=== PATIENT | male | born 1975 | race Caucasian/White ===

== ENCOUNTER 2021-05-30 21:54 | Emergency (ER) | payer MEDICAID, SELFPAY ==
--- NOTE | ~2021-05-30 | XR_ITS ---
EXAMINATION: XR ABDOMEN KUB CLINICAL INDICATION: Fecal impaction. COMPARISON: None TECHNIQUE: AP view of the abdomen. FINDINGS: There is a large volume of stool in the ascending through the mid descending colon. Moderate to small volume of stool in the distal colon at the pelvis. No abnormally dilated bowel loop. Nonobstructive bowel pattern. XR/XR KUB IMPRESSION: Large volume of stool in ascending colon through the mid descending colon. Nonobstructive bowel pattern.
--- NOTE | 2021-05-30 22:31 | PC.NURSE ---
Patient using the bathroom and unable to get vitals or triage patient at this time
[2021-05-30 22:36] VITALS: BP 123/74; PULSE 66; RESP 18; TEMP 36.9; O2SAT 98; BMI 28.6
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
[2021-05-30] MEDS: bisacodyL 5 MG TABLET.DR 10 MG PO (23:26)
[2021-05-30] MEDS: Magnesium Citrate 300 ML SOLUTION PO (23:27)
[2021-05-31 00:16] VITALS: BP 123/78; PULSE 74; RESP 16; TEMP 36.9; O2SAT 95
== END 2021-05-31 01:00 | disposition home or self-care (01) ==
PROVIDERS: Emergency Provider Internal Medicine
DX: K59.04 Chronic idiopathic constipation (principal); G81.91 Hemiplegia, unspecified affecting right dominant side
CPT/HCPCS: 74018; 99284

== ENCOUNTER → 2021-10-03 13:04 | Outpatient (BNVA) | payer MEDICAID, SELFPAY | PROVIDERS: PCP Student in an Organized Health Care Education/Training Program; Visit Provider Anesthesiology | DX: M47.816 Spondylosis without myelopathy or radiculopathy, lumbar region (principal); Z87.820 Personal history of traumatic brain injury | CPT/HCPCS: 99202 ==

== ENCOUNTER → 2021-11-02 10:07 | Outpatient (BNVA) | payer MEDICAID, SELFPAY | PROVIDERS: PCP Student in an Organized Health Care Education/Training Program; Visit Provider Anesthesiology | DX: Z13.89 Encounter for screening for other disorder (principal) ==

== ENCOUNTER 2021-11-03 08:10 | Outpatient (REF) | payer MEDICAID, SELFPAY ==
[2021-11-03 09:21] LABS: MANUAL DIFF FLAG NO
[2021-11-03 10:02] LABS: Basophils Percent Auto 0.6 % (0-2); Eosinophils Absolute Auto 0.1 X10*3/uL (0.0-0.4); Eosinophils Percent Auto 2.2 % (0-4); Hematocrit 44.3 % (42.0-52.0); Imm Gran Abs Auto 0.02 X10*3/uL (0.00-0.03); Imm Gran Pct Auto 0.4 % (0.0-0.4); Lymphocytes Absolute Auto 1.8 X10*3/uL (1.2-4.9); Lymphocytes Percent Auto 32.6 % (20-40); Mean Corpuscular HGB Conc 31.6 g/dl (31.0-36.0); Mean Corpuscular Hemoglobin 27.7 pg (27.0-33.0); Mean Corpuscular Volume 87.7 fL (80.0-98.0); Mean Platelet Volume 10.2 fL (9.4-12.4); Monocytes Absolute Auto 0.6 X10*3/uL (0.1-1.2); Monocytes Percent Auto 10.3 % (2-11); Neutrophils Absolute Auto 2.9 x10*3/uL (2.0-8.3); Neutrophils Percent Auto 53.9 % (45-73); Platelet Count 255 X10*3/uL (160-400); Red Blood Count 5.05 X10*6/uL (4.60-5.80); Red Cell Distribution Width 13.1 % (11.0-16.0); White Blood Count 5.4 X10*3/uL (4.8-10.8)
[2021-11-03 10:49] LABS: Alanine Aminotransferase 20 U/L (0-40); Albumin Level 4.2 g/dL (3.5-5.0); Alkaline Phosphatase 68 U/L (39-117); Anion Gap 10 (12-20); Aspartate Amino Transferase 14 U/L (5-37); Bilirubin Total 0.2 mg/dL (0.0-1.0); Blood Urea Nitrogen 17 mg/dL (9-16); Calcium 9.5 mg/dL (8.4-10.2); Carbon Dioxide 28 mmol/L (22-29); Chloride 107 mmol/L (96-108); Estimated Glomerular Filt Rate > 60; Glucose Random 80 mg/dL (60-115); Potassium 4.4 mmol/L (3.3-5.1); Sodium 141 mmol/L (135-145); Total Protein 7.2 g/dL (6.5-8.0)
== END 2021-11-03 08:11 | disposition home or self-care (01) ==
LOC: HO.LAB 08:10
PROVIDERS: PCP Student in an Organized Health Care Education/Training Program; Visit Provider Nurse Practitioner
DX: Z01.818 Encounter for other preprocedural examination (principal); K59.00 Constipation, unspecified; K64.9 Unspecified hemorrhoids; K62.5 Hemorrhage of anus and rectum
CPT/HCPCS: 36415; 80053; 85025; 99202

== ENCOUNTER 2021-11-10 15:00 | Outpatient (REF) | payer MEDICAID, SELFPAY ==
--- NOTE | ~2021-11-10 | CT_ITS ---
EXAMINATION: CT LUMBAR SPINE CLINICAL INFORMATION: Spondylosis without myelopathy or radiculopathy. COMPARISON: Abdominal CT from 01/26/2012. TECHNIQUE: Multidetector helical imaging acquired in the axial plane following intravenous administration of 85 mL of Omnipaque 350. This CT examination was performed using dose optimization techniques as appropriate, variously including the following: *Automated exposure control *Adjustment of mA and/or kV according to patient size (this includes techniques or standardized protocols for targeted exams where dose is matched to indication/reason for exam; i.e. 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 It is difficult to discern on the basis of this study as to whether the conus tip is abnormally low-lying in position. At the level of the sacral dysraphism, there is new incompletely visualized soft tissue abnormality, which is either high in attenuation or enhancing posteriorly in the midline deep subcutaneous tissues between the level of the gluteal musculature. Soft tissue abnormality was not seen on prior imaging and measures approximately 73 Hounsfield units. There are no subluxations. Disc space narrowing and a mild disc bulge noted at the L4-L5 level. An IVC filter is in place. There is a horseshoe kidney with multiple bilateral renal cysts. The abdominal aorta is normal in caliber. No vertebral body compression fracture deformities are seen. CT/CT lumbar spine w con IMPRESSION: Imaging findings, which may reflect caudal regression and/or partial sacral agenesis with a dysmorphic appearance of the partially sacralized L5 vertebra. 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 New soft tissue abnormality at the dysraphic defect in the sacrum, not seen on prior CT imaging from February 2012. It is indeterminate as to whether findings represent blood products or a soft tissue mass; query for any history of recent trauma. An MRI targeting the lower lumbosacral region without and with contrast is recommended in follow-up for further evaluation.
[2021-11-10] MEDS: iohexoL 350 MG/ML 100 ML INFUS..BTL IV (15:34)
== END 2021-11-10 15:01 | disposition home or self-care (01) ==
LOC: HO.CT 15:00
PROVIDERS: PCP Student in an Organized Health Care Education/Training Program; Visit Provider Anesthesiology
DX: M47.816 Spondylosis without myelopathy or radiculopathy, lumbar region (principal)
CPT/HCPCS: 72132; Q9967

== ENCOUNTER 2021-11-25 10:36 | Outpatient (REF) | payer MEDICAID, SELFPAY ==
--- NOTE | ~2021-11-25 | CT_ITS ---
EXAMINATION: CT PELVIS WITH CONTRAST CLINICAL INFORMATION: Sacrococcygeal disorders. COMPARISON: Abdominal radiograph dated 05/30/[address] abdomen/pelvis dated 01/26/2012. TECHNIQUE: Helical scanning was performed with submillimeter collimation through the pelvis with the use of oral contrast and during bolus intravenous injection of 85 mL of Omnipaque 350 intravenous contrast. Sagittal and coronal multiplanar 2-D reconstructions were obtained. This CT examination was performed using dose optimization techniques as appropriate, variously including the following: *Automated exposure control *Adjustment of mA and/or kV according to patient size (this includes techniques or standardized protocols for targeted exams where dose is matched to indication/reason for exam; i.e. extremities or head) *Use of iterative reconstruction technique DLP: 262 mGy-cm FINDINGS: Redemonstration of transitional anatomy visualized within the lower lumbar spine and sacrum, similar when compared to the prior examination. There is a lytic/destructive lesion which appears in the midportion of the sacrum in the region of the previously seen sacral agenesis. This appears to be soft tissue density and demonstrates mild heterogeneous enhancement. There is a large, expansile soft tissue component which is located anterior to the distal sacrum within the posterior pelvis. Overall this area measures approximately 7.4 x 7.2 x 3.9 cm (AP by ML by CC). This includes an anterior and left pelvic ovoid component which measures up to 3.4 cm and is either closely associated or attached to the main lesion. There is erosion of the adjacent superior and inferior sacral structures when compared to the prior examination. No additional soft tissue mass. Subcentimeter bilateral pelvic lymph nodes are unchanged when compared to the prior examination. No new or increasing lymphadenopathy. Partially visualized horseshoe kidney with multiple simple-appearing renal cysts, increased in size when compared to the prior CT. Cysts are benign appearing and no dedicated followup imaging is recommended. The urinary bladder is distended without hydronephrosis. The visualized pelvic bowel loops are unremarkable. Partially visualized IVC filter. No acute fracture or dislocation. Mild osteoarthritis at the right and left hip. CT/CT pelvis w con IMPRESSION: 1. Expansile soft tissue mass associated with the mid sacrum in the area of previously seen sacral agenesis. This measures up to 7.4 x 7.2 x 3.9 cm in greatest dimension including an anterior left pelvic ovoid component. There is erosion of the adjacent osseous structures. Findings are concerning for a neoplastic lesion and soft tissue sampling could be considered to help further evaluate. 2. No additional soft tissue mass. No new pelvic lymphadenopathy. 3. Transitional anatomy redemonstrated within the lower lumbar spine and sacrum without acute osseous abnormality. Bilateral hip osteoarthritis. 4. Partially visualized horse-shoe kidney with increasing simple cysts. No dedicated followup imaging recommended. Distended urinary bladder without significant hydroureter. This critical result was discussed with SONJA Shipman at 3:37 PM on 11/25/2021 and it was ascertained that the content and urgency of the report was understood at the time of direct communication.
[2021-11-25] MEDS: iohexoL 350 MG/ML 100 ML INFUS..BTL 85 ML IV (11:31)
== END 2021-11-25 10:37 | disposition home or self-care (01) ==
LOC: HO.CT 10:36
PROVIDERS: PCP Student in an Organized Health Care Education/Training Program; Visit Provider Anesthesiology
DX: M53.3 Sacrococcygeal disorders, not elsewhere classified (principal)
CPT/HCPCS: 72193; Q9967

== ENCOUNTER → 2021-11-28 13:06 | Outpatient (BNVA) | payer MEDICAID, SELFPAY | PROVIDERS: PCP Student in an Organized Health Care Education/Training Program; Visit Provider Nurse Practitioner | DX: K59.00 Constipation, unspecified (principal); K62.5 Hemorrhage of anus and rectum; K64.9 Unspecified hemorrhoids | CPT/HCPCS: 99212 ==

== ENCOUNTER → 2021-12-23 11:55 | Outpatient (BNVA) | payer MEDICAID, SELFPAY | PROVIDERS: PCP Student in an Organized Health Care Education/Training Program; Visit Provider Nurse Practitioner Family | DX: Z13.89 Encounter for screening for other disorder (principal) ==

== ENCOUNTER 2022-09-28 10:36 | Day surgery (SDC) | payer MEDICAID, SELFPAY ==
[2022-09-22 14:04] VITALS: BMI 29.6
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
[2022-09-28 10:52] VITALS: BP 118/70; PULSE 88; RESP 15; TEMP 36.9; O2SAT 96
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
--- NOTE | 2022-09-28 11:20 | W.PM.OPN ---
Operative Note Operative Note Date of Service: 09/28/22 Narrative: Operative Information Procedure Description: Colonoscopy Indication: screening Anesthesia: MAC COLONOSCOPY Instrument: Olympus variable stiffness pediatric scope 190L Colonoscopy Monitoring: Vital signs and clinical assessment, continuous EKG monitoring, Pulse oximetry, Carbon Dioxide monitoring and blood pressure monitoring were done throughout the procedure. Colon withdrawal time was 10 minutes. Procedure: The patient was placed in the left lateral decubitis position and pre-procedure medications were administered. After a digital rectal examination of the ano-rectum, the video colonoscope was inserted into the rectum and advanced through the colon to the cecum/TI. The colonoscope was slowly withdrawn in a retrograde panoramic fashion and the colon mucosa was carefully examined including a retroflexed view of the rectum. Findings and interventions are described below. Procedure Difficulty: moderate, pressure applied Findings: Terminal Ileum-normal Cecum:normal Ascending Colon: normal Transverse Colon -normal Descending Colon:normal Sigmoid Colon: normal Rectum: Retroflexion with small internal hemorrhoids, grade I Anorectum - normal Colon preparation: [place] Bowel Preparation Scale Right colon; 2 Transverse colon: 2 Left colon; 2 (0 = Unprepared colon segment with mucosa not seen due to solid stool that cannot be cleared. 1 = Portion of mucosa of the colon segment seen, but other areas of the colon segment not well seen due to staining, residual stool and/or opaque liquid. 2 = Minor amount of residual staining, small fragments of stool and/or opaque liquid, but mucosa of colon segment seen well. 3 = Entire mucosa of colon segment seen well with no residual staining, small fragments of stool or opaque liquid) Impression and Post Procedure Diagnosis: internal hemorrhoids Plan: High fiber diet leaflet Avoid straining at stool, epsom salts and sitz bath, anusol supps or cream Repeat Colonoscopy in 10 years or earlier if clinically indicated Above findings were reviewed with the patient and relevant handouts were provided if indicated.
[2022-09-28] MEDS: Lactated Ringers 1,000 ML 50 ML IVCONT (11:22)
[2022-09-28 11:55] VITALS: BP 141/76; PULSE 83; RESP 17; TEMP 36.1; O2SAT 100
[2022-09-28 12:10] VITALS: BP 147/77; PULSE 79; RESP 17; O2SAT 97
[2022-09-28] MEDS: Ketorolac Tromethamine 30 MG/ML VIAL 15 MG IVPUSH (12:19)
== END 2022-09-28 13:05 | disposition home or self-care (01) ==
PROVIDERS: PCP Student in an Organized Health Care Education/Training Program; Visit Provider Internal Medicine Gastroenterology
PROC: 0DJD8ZZ Inspection of Lower Intestinal Tract, Via Natural or Artificial Opening Endoscopic (ICD-10-PCS; CPT 45378; principal; 2022-09-28 11:30)
DX: Z12.11 Encounter for screening for malignant neoplasm of colon (principal); K64.0 First degree hemorrhoids; K62.5 Hemorrhage of anus and rectum; K59.09 Other constipation; Z87.820 Personal history of traumatic brain injury; Z79.1 Long term (current) use of non-steroidal anti-inflammatories (NSAID); Z79.899 Other long term (current) drug therapy; Z87.891 Personal history of nicotine dependence
CPT/HCPCS: 45378; J1885; J2250

== ENCOUNTER 2022-10-16 16:40 | Emergency (ER) | payer MEDICAID, SELFPAY ==
--- NOTE | ~2022-10-16 | CT_ITS ---
EXAMINATION: CT CHEST WITH CONTRAST CLINICAL INFORMATION: Focal airspace opacities or recent x-ray. COMPARISON: Chest radiograph earlier today at 5:[address] abdomen/pelvis 01/26/2012. TECHNIQUE: Multidetector volumetric CT imaging of the chest was obtained after the administration of 50 mL of Omnipaque 350 intravenous contrast without immediate adverse reactions. Axial MIP volume rendering provided. Sagittal and coronal reformatted images were obtained. This CT examination was performed using dose optimization techniques as appropriate, variously including the following: *Automated exposure control *Adjustment of mA and/or kV according to patient size (this includes techniques or standardized protocols for targeted exams where dose is matched to indication/reason for exam; i.e. extremities or head) *Use of iterative reconstruction technique DLP: 295 mGy-cm FINDINGS: LUNGS: Bilateral bronchial wall thickening with scattered mucus impaction. No focal consolidation or significant groundglass disease. Linear-like opacities in the right middle lobe and lingula, favored to represent subsegmental atelectasis or scarring. The central airways are patent. There are multiple bilateral solid pulmonary nodules, for example a 7 mm left lower lobe nodule (5:314), a 6 mm perifissural nodule in the inferior right upper lobe (5:185), and a 5 mm nodule in the right lower lobe (5:213). MEDIASTINUM: Normal heart size. No pericardial effusion. Coronary artery calcifications are present. Incidentally noted right-sided aortic arch. No pathologically enlarged mediastinal or hilar lymph nodes. Normal appearance of the thyroid gland. PLEURA: No pleural effusion or pneumothorax. AXILLA: Slightly asymmetric in number and size left axillary lymph nodes, measuring up to 8 mm in short axis. UPPER ABDOMEN: Asymmetric elevation of the right hemidiaphragm. Multiple new heterogeneous but predominantly hypodense liver masses compared to a CT abdomen from 01/26/2012, largest measuring approximately 5.5 x 5.3 cm in the posteromedial right hepatic lobe (3:47). OSSEOUS STRUCTURES: No acute or aggressive appearing osseous abnormalities. CT/CT chest w IV con IMPRESSION: 1. Multiple new liver masses are nonspecific but concerning for malignancy, including metastatic disease. Recommend further evaluation with an MR of the abdomen with and without intravenous contrast. 2. Multiple sub-7 mm pulmonary nodules, nonspecific but that also could be malignant, including metastatic. 3. Slightly asymmetric in number and size of left axillary lymph nodes, nonspecific and possibly reactive. Attention on follow-up recommended. 4. Incidentally noted right-sided aortic arch. This critical result, specifically the liver lesions and pulmonary nodules, were discussed with Elmira Jorge at 10/16/2022 8:01 PM and it was ascertained that the content and urgency of the report was understood at the time of direct communication.
--- NOTE | ~2022-10-16 | XR_ITS ---
EXAMINATION: XR CHEST CLINICAL INFORMATION: Chest pain. COMPARISON: None TECHNIQUE: Frontal view of the chest was obtained. FINDINGS: Normal appearance of the cardiomediastinal silhouette. Mild focal airspace opacities in the right lower lobe. Clear left lung. No pleural effusion or pneumothorax. No acute osseous abnormalities. The visualized upper abdomen is within normal limits. XR/XR chest 1V IMPRESSION: Focal airspace opacities in the right lower lobe concerning for a focal infiltrate/pneumonia in the appropriate clinical context. Recommend a follow-up examination after treatment to ensure resolution.
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
[2022-10-16 16:52] VITALS: BP 118/64; O2SAT 98
[2022-10-16 16:59] VITALS: BP 110/77; PULSE 78; RESP 16; TEMP 37.1; O2SAT 98; BMI 32.0
--- NOTE | 2022-10-16 17:20 | ECG_ITS ---
Test Reason : CHEST PAIN Blood Pressure : / mmHG Vent. Rate : 080 BPM Atrial Rate : 080 BPM P-R Int : 136 ms QRS Dur : 102 ms QT Int : 362 ms P-R-T Axes : 036 034 030 degrees QTc Int : 417 ms Normal sinus rhythm Normal ECG No previous ECGs available Referred By: Elmira Jorge Electronically Signed By:DUTCH CAPONE MD
[2022-10-16 18:27] LABS: MANUAL DIFF FLAG NO
[2022-10-16 18:29] LABS: Basophils Percent Auto 0.4 % (0-2); Eosinophils Absolute Auto 0.2 X10*3/uL (0.0-0.4); Hematocrit 40.1 % (42.0-52.0); Hemoglobin 12.9 g/dl (14.0-18.0); Imm Gran Abs Auto 0.02 X10*3/uL (0.00-0.03); Imm Gran Pct Auto 0.3 % (0.0-0.4); Lymphocytes Absolute Auto 1.8 X10*3/uL (1.2-4.9); Lymphocytes Percent Auto 23.9 % (20-40); Mean Corpuscular HGB Conc 32.2 g/dl (31.0-36.0); Mean Corpuscular Hemoglobin 26.7 pg (27.0-33.0); Mean Corpuscular Volume 82.9 fL (80.0-98.0); Mean Platelet Volume 9.4 fL (9.4-12.4); Monocytes Absolute Auto 0.6 X10*3/uL (0.1-1.2); Monocytes Percent Auto 8.3 % (2-11); Neutrophils Absolute Auto 4.9 x10*3/uL (2.0-8.3); Neutrophils Percent Auto 65.1 % (45-73); Platelet Count 278 X10*3/uL (160-400); Red Blood Count 4.84 X10*6/uL (4.60-5.80); Red Cell Distribution Width 13.2 % (11.0-16.0); White Blood Count 7.6 X10*3/uL (4.8-10.8)
[2022-10-16 18:44] LABS: Alanine Aminotransferase 25 U/L (0-40); Albumin Level 4.1 g/dL (3.5-5.0); Alkaline Phosphatase 85 U/L (39-117); Anion Gap 10 (12-20); Aspartate Amino Transferase 16 U/L (5-37); Bilirubin Total 0.2 mg/dL (0.0-1.0); Blood Urea Nitrogen 15 mg/dL (9-16); Calcium 9.1 mg/dL (8.4-10.2); Carbon Dioxide 28 mmol/L (22-29); Chloride 108 mmol/L (96-108); Creatinine Clr Calc Pharmacy 109.9; Estimated Glomerular Filt Rate > 60; Glucose Random 88 mg/dL (60-115); Lipase 17 U/L (8-78); Potassium 4.5 mmol/L (3.3-5.1); Sodium 141 mmol/L (135-145); Total Protein 7.2 g/dL (6.5-8.0)
[2022-10-16 18:52] LABS: Troponin-I High Sensitivity < 3.5 ng/L (<3.5-35.0)
[2022-10-16 18:54] LABS: COVID-19 Test Negative (Negative); IDNOW Serial# 16C4AD1C
[2022-10-16] MEDS: iohexoL 350 MG/ML 100 ML INFUS..BTL IV (19:15)
[2022-10-16 19:54] VITALS: BP 120/77; PULSE 72; RESP 14; TEMP 37; O2SAT 97
[2022-10-16 21:46] VITALS: BP 126/80; PULSE 78; RESP 11; TEMP 37; O2SAT 97
[2022-10-16 22:05] LABS: Imm Gran Abs Auto 0.02 X10*3/uL (0.00-0.03); Imm Gran Pct Auto 0.2 % (0.0-0.4); MANUAL DIFF FLAG SCAN; Mean Corpuscular Volume 82.8 fL (80.0-98.0); PLT CLUMP 1; SCAN SMEAR FLAG 1
[2022-10-16 22:06] LABS: Appearance Urine Clear; Color Urine Yellow; Glucose Urine UA Negative (Negative); Leukocyte Esterase Urine Negative (Negative); Nitrite Urine Negative (Negative); Specific Gravity - Urine >= 1.030 (1.005-1.025); UMIC TRIGGER UACC YES; Urine Blood Trace (Negative); Urine Ketones Negative (Negative); Urine Protein Trace mg/dL (Neg-Trace)
[2022-10-16 22:07] LABS: Basophils Percent Auto 0.4 % (0-2); Eosinophils Absolute Auto 0.2 X10*3/uL (0.0-0.4); Eosinophils Percent Auto 1.8 % (0-4); Hematocrit 41.4 % (42.0-52.0); Hemoglobin 13.4 g/dl (14.0-18.0); Lymphocytes Absolute Auto 2.1 X10*3/uL (1.2-4.9); Lymphocytes Percent Auto 24.6 % (20-40); Mean Corpuscular HGB Conc 32.4 g/dl (31.0-36.0); Mean Corpuscular Hemoglobin 26.8 pg (27.0-33.0); Mean Platelet Volume 9.9 fL (9.4-12.4); Monocytes Absolute Auto 0.6 X10*3/uL (0.1-1.2); Monocytes Percent Auto 7.1 % (2-11); Neutrophils Absolute Auto 5.7 x10*3/uL (2.0-8.3); Neutrophils Percent Auto 65.9 % (45-73); Red Cell Distribution Width 13.4 % (11.0-16.0)
[2022-10-16 22:08] LABS: Platelet Count 236 X10*3/uL (160-400); White Blood Count 8.6 X10*3/uL (4.8-10.8)
[2022-10-16 22:08] LABS: Bacteria Urine None Seen (None Seen); Hyaline Casts Urine 0-2 /LPF (0-2); Squamous Epithelial Cell Urine 0-2 /HPF (0-2); WBC Urine 0-5 /HPF (0-5)
[2022-10-16 22:10] LABS: OBS Int Ctl Valid YES; OBS1 NEGATIVE (NEGATIVE)
[2022-10-16 22:24] LABS: B Type Natriuretic Peptide < 10 pg/mL (<100)
[2022-10-16 22:27] LABS: SLIDE REVIEW VERIFIED
[2022-10-16 22:28] LABS: Troponin-I High Sensitivity < 3.5 ng/L (<3.5-35.0)
== END 2022-10-16 23:26 | disposition home or self-care (01) ==
PROVIDERS: Physician Assistant; Emergency Provider Student in an Organized Health Care Education/Training Program
DX: K64.8 Other hemorrhoids (principal); R07.9 Chest pain, unspecified; K59.09 Other constipation; Z20.822 Contact with and (suspected) exposure to COVID-19; Z87.820 Personal history of traumatic brain injury; G81.91 Hemiplegia, unspecified affecting right dominant side; F88 Other disorders of psychological development; M99.84 Other biomechanical lesions of sacral region; R93.89 Abnormal findings on diagnostic imaging of other specified body structures; R16.0 Hepatomegaly, not elsewhere classified; R91.8 Other nonspecific abnormal finding of lung field; Q25.49 Other congenital malformations of aorta; Z79.899 Other long term (current) drug therapy
CPT/HCPCS: 36415; 71045; 71260; 80053; 81001; 82272; 83690; 83735; 83880; 84484; 85025; 86850; 86900; 86901; 87635; 93005; 99284; Q9967

== ENCOUNTER → 2022-11-10 10:34 | Outpatient (BNVA) | payer MEDICAID, SELFPAY | PROVIDERS: Visit Provider Nurse Practitioner | DX: Z12.11 Encounter for screening for malignant neoplasm of colon (principal); K59.00 Constipation, unspecified; K64.9 Unspecified hemorrhoids | CPT/HCPCS: 99212 ==

== ENCOUNTER → 2022-11-28 10:23 | Outpatient (BNVA) | payer MEDICAID, SELFPAY | PROVIDERS: Visit Provider Nurse Practitioner | DX: Z12.11 Encounter for screening for malignant neoplasm of colon (principal); K59.00 Constipation, unspecified; K64.9 Unspecified hemorrhoids | CPT/HCPCS: 99212 ==

== ENCOUNTER → 2022-12-06 10:10 | Outpatient (BNVA) | payer MEDICAID, SELFPAY | PROVIDERS: PCP Student in an Organized Health Care Education/Training Program; Referring Provider Nurse Practitioner; Visit Provider Surgery | DX: K64.8 Other hemorrhoids (principal); D3A.8 Other benign neuroendocrine tumors; S06.890S Other specified intracranial injury without loss of consciousness, sequela; G81.91 Hemiplegia, unspecified affecting right dominant side; F91.9 Conduct disorder, unspecified; W34.00XS Accidental discharge from unspecified firearms or gun, sequela | CPT/HCPCS: 46600; 99202 ==

== ENCOUNTER → 2022-12-12 09:23 | Outpatient (BNVA) | payer MEDICAID, SELFPAY | PROVIDERS: PCP Student in an Organized Health Care Education/Training Program; Visit Provider Nurse Practitioner | DX: K59.00 Constipation, unspecified (principal); K64.8 Other hemorrhoids; D3A.8 Other benign neuroendocrine tumors | CPT/HCPCS: 99212 ==

== ENCOUNTER → 2023-01-10 11:29 | Outpatient (BNVA) | payer MEDICAID, SELFPAY | PROVIDERS: PCP Student in an Organized Health Care Education/Training Program; Visit Provider Nurse Practitioner | DX: K59.00 Constipation, unspecified (principal); K64.8 Other hemorrhoids; D3A.8 Other benign neuroendocrine tumors | CPT/HCPCS: 99212 ==